=== PATIENT | male | born 1975 | race Caucasian/White ===

== ENCOUNTER 2019-10-20 15:21 | Emergency (ER) | payer BC ==
[2019-10-20 15:45] VITALS: BP 138/75
[2019-10-20 15:59] LABS: Influenza A Molecular POSITIVE (Negative)
--- NOTE | 2019-10-20 16:21 | UC ---
FLU HPI - HPI Summary HPI Summary: 44-year-old male comes in with chief complaint of influenza-like illness for 5 days. Started initially with some chills spreads and moved to fevers body aches with some rhinorrhea and a cough. Reason [id number] medicines which does help with the symptoms. Last year patient had a pneumonia and so the symptoms remind him of the pneumonia. No history of asthma is not a smoker. - History of Current Complaint Chief Complaint: UCRespiratory Stated Complaint: FLU SYMPTOMS Time Seen by Provider: 10/20/19 16:06 Pain Intensity: 4 - Allergy/Home Medications Allergies/Adverse Reactions: Allergies Allergy/AdvReac Type Severity Reaction Status Date / Time Penicillins Allergy Hives Verified 10/20/19 15:40 Home Medications: Home Medications D-Methorphan/PE/Acetaminophen [Daytime Cold-Flu Liquid] 1 dose PO ONCE 10/20/19 [History Confirmed 10/20/19] Pheniramine/P-Eph/Acetaminophn [Theraflu Flu & Sore Throat] 1 dose PO ONCE 10/20 [History Confirmed 10/20/19] PMH/Surg Hx/FS Hx/Imm Hx Previously Healthy: Yes Respiratory History: Pneumonia - Surgical History Surgical History: None - Family History Known Family History: Positive: Non-Contributory - Social History Alcohol Use: Occasionally Substance Use Type: None Smoking Status (MU): Never Smoked Tobacco Review of Systems All Other Systems Reviewed And Are Negative: Yes Constitutional: Positive: Fever, Chills, Other - see hpi Skin: Positive: Negative Eyes: Positive: Negative ENT: Positive: Sore Throat, Nasal Discharge Respiratory: Positive: Cough, Other - see hpi Cardiovascular: Positive: Negative Gastrointestinal: Positive: Negative Motor: Positive: Negative Neurovascular: Positive: Negative Musculoskeletal: Positive: Myalgia Neurological/Mental Status: Positive: Headache Psychological: Positive: Negative Is Patient Immunocompromised?: No Physical Exam Triage Information Reviewed: Yes Appearance: No Pain Distress, Well-Nourished, Ill-Appearing - mild Vital Signs: Initial Vital Signs Temp 98.5 F 10/20/19 15:42 Pulse 82 10/20/19 15:42 Resp 15 10/20/19 15:42 BP 138/75 10/20/19 15:42 Pulse Ox 100 10/20/19 15:42 Vital Signs Reviewed: Yes Eye Exam: Normal Eyes: Positive: Conjunctiva Clear ENT: Positive: Pharyngeal erythema, Nasal congestion, Nasal drainage, TMs normal Neck: Positive: Supple Respiratory: Positive: No respiratory distress, No accessory muscle use, Rhonchi Cardiovascular: Positive: RRR Musculoskeletal: Positive: Strength Intact Neurological: Positive: Alert, Muscle Tone Normal Psychological: Positive: Age Appropriate Behavior Skin Exam: Normal Flu Course/Dx - Course Course Of Treatment: Influenza positive. Patient's on day 5 of symptoms. We discussed the signs and symptoms of pneumonia and bronchospasm and viral versus bacterial infections and the role of antibiotics. At this time the patient prefers to have a prescription for an antibiotic and an albuterol inhaler to be started if his chest congestion symptoms do not improve or if they worsen. Patient's going to get reevaluated if worse requests concerns. - Differential Dx/Diagnosis Provider Diagnosis: Influenza Discharge ED - Sign-Out/Discharge Documenting (check all that apply): Patient Departure All imaging exams completed and their final reports reviewed: No Studies - Discharge Plan Condition: Stable Disposition: HOME Prescriptions: Albuterol HFA INHALER* [Ventolin HFA Inhaler*] 2 puff INH Q4H PRN #1 mdi PRN Reason: Wheezing DOXYcycline CAP(*) [DOXYcycline 100MG CAP(*)] 100 mg PO BID #20 cap Patient Education Materials: Influenza (ED) Referrals: [facility] [place] [facility] [Outside] Additional Instructions: FOLLOW UP WITH YOUR DOCTOR IF NOT COMPLETELY IMPROVED. Use the albuterol inhaler having any wheezing. Start the antibiotic if you're having continued or worsening chest congestion. GET REEVALUATED SOONER IF NOT IMPROVED OR WORSE OR ANY QUESTIONS OR CONCERNS. - Billing Disposition and Condition Condition: STABLE Disposition: Home
== END 2019-10-20 16:28 | disposition home or self-care (01) ==
LOC: UCCORT 15:21
DX: J11.1 Influenza due to unidentified influenza virus with other respiratory manifestations (principal); Z88.0 Allergy status to penicillin
CPT/HCPCS: 99202; G0463